=== PATIENT | female | born 1940 | race African-American/Black ===

== ENCOUNTER 2018-07-06 16:08 | Emergency (ER) | payer MEDICARE, MEDICAID ==
[~2018-07-06] VITALS: Ht 154.9 cm; Wt 50.0 kg
[~2018-07-06 16:08] MED LIST: CLOP75TA33 PO; FOLI-43 PO; GABA-529 PO; ISOS60TA4 PO; LIP40 PO; LISI10TA5 PO; LORA10TA7 PO; MIRT15TA6 PO
[2018-07-06 16:35] VITALS: BP 131/80
== END 2018-07-06 18:36 | disposition left against medical advice (07) ==
LOC: ER 16:36
DX: Z53.21 Procedure and treatment not carried out due to patient leaving prior to being seen by health care provider (principal)

== ENCOUNTER 2019-04-14 06:54 | Inpatient (IN) | payer MEDICARE, MEDICAID ==
[~2019-04-14] VITALS: Ht 156.2 cm; Wt 45.4 kg
[2019-04-14] MEDS ORDERED: NITROGLYCERIN OINT 1GM/INCH UDPKT TD ONE (07:30)
[2019-04-14] MEDS ORDERED: ACETAMINOPHEN 325MG TABLET PO ONE (07:30)
[2019-04-14 08:20] LABS: HEMATOCRIT. 43.8 % (36.0-48.0); HEMOGLOBIN. 14.5 g/dL (12.0-16.0); MEAN CORPUSCULAR HEMOGLOBIN 29.3 pg (28.0-32.0); MEAN CORPUSCULAR VOLUME 88.4 fL (81.0-99.0); MEAN PLATELET VOLUME 8.9 fl (7.4-10.4); PLATELET 286 x1000/uL (130-400); RED BLOOD CELL COUNT 4.95 mill/uL (4.2-5.4); RED CELL DISTRIBUTION WIDTH 14.2 % (11.6-14.6)
[2019-04-14 08:28] LABS: CHLORIDE 110 mEq/L (98-107)
[2019-04-14 09:05] LABS: PLATELET ESTIMATE NORMAL
[2019-04-14] MEDS ORDERED: ZOLPIDEM TARTRATE 5MG TABLET PO PRN (10:30)
[2019-04-14] MEDS ORDERED: IPRATROPIUM/ALBUTEROL 0.5-3(2.5)MG/3ML NEB NEB PRN (10:30)
[2019-04-14] MEDS ORDERED: ONDANSETRON HCL 4MG/2ML INJ IV PRN (10:30)
[2019-04-14] MEDS ORDERED: TRAMADOL 50MG TABLET PO PRN (10:30)
[2019-04-14] MEDS ORDERED: GUAIFENESIN 200MG/10ML SUGAR FREE UDC PO PRN (10:30)
[2019-04-14] MEDS ORDERED: LORAZEPAM 0.5MG TABLET PO PRN (10:30)
[2019-04-14] MEDS ORDERED: MAGNESIUM/ALUMINUM HYDROXIDE/SIMETHICONE 30ML UDC PO PRN (10:30)
[2019-04-14] MEDS ORDERED: NITROGLYCERIN 0.4MG TABLET SL SL PRN (10:30)
[2019-04-14] MEDS ORDERED: ACETAMINOPHEN 325MG TABLET PO PRN (10:30)
[2019-04-14] MEDS ORDERED: CLONIDINE 0.1MG TABLET PO PRN (10:30)
[2019-04-14 10:40] VITALS: BP 152/81
[2019-04-14] MEDS: AMLODIPINE 10MG TABLET PO SCH (11:51)
[2019-04-14] MEDS: ENOXAPARIN 40MG/0.4ML SYR SUBCUT SCH (11:52)
[2019-04-14 12:00] VITALS: BP 138/82
[2019-04-14 12:01] LABS: FOLIC ACID (FOLATE) SERUM >20 ng/mL ng/mL (>5.38)
[2019-04-14 12:12] LABS: VITAMIN B12 SERUM 887 pg/mL (211-911)
[2019-04-14 16:00] VITALS: BP 140/90
[2019-04-14 16:00] LABS: CREATINE KINASE 68 IU/L (26-192)
[2019-04-14 16:01] LABS: CREATINE KINASE MB FRACTION 1.4 ng/mL (0.5-3.6)
[2019-04-14 20:00] VITALS: BP 178/99
[2019-04-14] MEDS: ATORVASTATIN CALCIUM 40MG TABLET PO SCH (22:05)
[2019-04-14] MEDS: FAMOTIDINE 20MG TABLET PO SCH (22:05)
[2019-04-15] VITALS: BP 154/88
[2019-04-15 01:14] LABS: CREATINE KINASE 68 IU/L (26-192)
[2019-04-15 01:15] LABS: CREATINE KINASE MB FRACTION 1.4 ng/mL (0.5-3.6)
[2019-04-15 04:00] VITALS: BP 126/72
[2019-04-15 08:00] VITALS: BP 122/74
[2019-04-15] MEDS: FAMOTIDINE 20MG TABLET PO SCH (08:24)
[2019-04-15] MEDS: ENOXAPARIN 40MG/0.4ML SYR SUBCUT SCH (08:24)
[2019-04-15] MEDS: AMLODIPINE 10MG TABLET PO SCH (08:24)
[2019-04-15] MEDS: CLOPIDOGREL 75MG TABLET PO SCH (08:24)
[2019-04-15 12:00] VITALS: BP 145/100
[2019-04-15 16:00] VITALS: BP 141/67
[2019-04-15 17:13] LABS: CLARITY URINE CLEAR (CLEAR); COLOR URINE YELLOW (YELLOW); KETONES URINE NEGATIVE (NEGATIVE); LEUKOCYTE ESTERASE URINE 1+ (NEGATIVE); NITRITE URINE NEGATIVE (NEGATIVE); OCCULT BLOOD URINE TRACE (NEGATIVE); PH URINE 6.5 (4.5-8.0); PROTEIN URINE NEGATIVE (NEGATIVE); SPECIFIC GRAVITY URINE 1.002 (1.005-1.030); UROBILINOGEN URINE 0.2 E.U./dL (0.2-1.0)
[2019-04-15 17:30] LABS: METHADONE URINE SCREEN NEGATIVE (NEGATIVE)
[2019-04-15 17:31] LABS: *AMPHETAMINES SCREEN URINE NEGATIVE (NEGATIVE); *BARBITURATES SCREEN URINE NEGATIVE (NEGATIVE); *BENZODIAZEPINES SCREEN URINE NEGATIVE (NEGATIVE); CANNABINOID URINE SCREEN NEGATIVE (NEGATIVE); OPIATES URINE SCREEN NEGATIVE (NEGATIVE); PHENCYCLIDINE URINE SCREEN NEGATIVE (NEGATIVE)
[2019-04-15 17:32] LABS: *COCAINE SCREEN URINE NEGATIVE (NEGATIVE)
[2019-04-15] MEDS: ATORVASTATIN CALCIUM 40MG TABLET PO SCH (20:55)
[2019-04-16] VITALS: BP_SYST 156; BP_SYST 89; BP_DIAS 89
[2019-04-16 04:00] VITALS: BP 133/61
[2019-04-16 08:00] VITALS: BP 152/76
[2019-04-16] MEDS: ENOXAPARIN 40MG/0.4ML SYR SUBCUT SCH (08:28)
[2019-04-16] MEDS: AMLODIPINE 10MG TABLET PO SCH (08:28)
[2019-04-16] MEDS: FAMOTIDINE 20MG TABLET PO SCH (08:28)
[2019-04-16] MEDS: CLOPIDOGREL 75MG TABLET PO SCH (08:28)
[2019-04-16 12:00] VITALS: BP 143/84
[2019-04-16] MEDS ORDERED: LEVOFLOXACIN 500MG PREMIX 100 ML IV SCH (12:00)
[2019-04-16 16:00] VITALS: BP 132/65
[2019-04-16] MEDS ORDERED: CEFTRIAXONE 1 G PREMIX 50 ML IV SCH (16:15)
[2019-04-16] MEDS ORDERED: METHYLPREDNISOLONE SOD SUCC 125 MG/2 ML VIAL IV NR (16:15)
[2019-04-16] MEDS: CEFTRIAXONE 1 G PREMIX 50 ML IV SCH (17:59)
[2019-04-16 20:00] VITALS: BP 139/64
[2019-04-16] MEDS: ATORVASTATIN CALCIUM 40MG TABLET PO SCH (20:37)
[2019-04-17] VITALS: BP 169/90
[2019-04-17 04:00] VITALS: BP 126/91
[2019-04-17 08:00] VITALS: BP 150/93
[2019-04-17] MEDS: CLOPIDOGREL 75MG TABLET PO SCH (08:25)
[2019-04-17] MEDS: AMLODIPINE 10MG TABLET PO SCH (08:25)
[2019-04-17] MEDS: ENOXAPARIN 40MG/0.4ML SYR SUBCUT SCH (08:25)
[2019-04-17] MEDS: FAMOTIDINE 20MG TABLET PO SCH (08:25)
[2019-04-17] MEDS: DOCUSATE SODIUM 100MG CAPSULE PO PRN (11:56)
[2019-04-17 12:00] VITALS: BP 142/83
[2019-04-17] MEDS ORDERED: LEVOFLOXACIN 250MG PREMIX 50 ML IV SCH (12:00)
[2019-04-17 16:00] VITALS: BP 135/85
[2019-04-17] MEDS: CEFTRIAXONE 1 G PREMIX 50 ML IV SCH (18:00)
[2019-04-17 20:00] VITALS: BP 158/78
[2019-04-17] MEDS: ATORVASTATIN CALCIUM 40MG TABLET PO SCH (21:38)
[2019-04-18] VITALS: BP 133/77
[2019-04-18 04:00] VITALS: BP 130/85
[2019-04-18 08:00] VITALS: BP 156/72
[2019-04-18] MEDS: AMLODIPINE 10MG TABLET PO SCH (08:44)
[2019-04-18] MEDS: FAMOTIDINE 20MG TABLET PO SCH (08:44)
[2019-04-18] MEDS: CLOPIDOGREL 75MG TABLET PO SCH (08:44)
[2019-04-18] MEDS: ENOXAPARIN 40MG/0.4ML SYR SUBCUT SCH (08:45)
[2019-04-18] MEDS: DOCUSATE SODIUM 100MG CAPSULE PO PRN (08:45)
[2019-04-18 12:00] VITALS: BP 133/70
[2019-04-18 16:00] VITALS: BP 130/75
[2019-04-18] MEDS: CEFTRIAXONE 1 G PREMIX 50 ML IV SCH (17:02)
[2019-04-18 20:00] VITALS: BP 135/82
[2019-04-18] MEDS: ATORVASTATIN CALCIUM 40MG TABLET PO SCH (21:26)
[2019-04-19] VITALS: BP 133/85
[2019-04-19 04:00] VITALS: BP 138/75
[2019-04-19] MEDS: DOCUSATE SODIUM 100MG CAPSULE PO PRN (06:45)
[2019-04-19 08:00] VITALS: BP 139/69
[2019-04-19] MEDS ORDERED: ENOXAPARIN 30MG/0.3ML SYR SUBCUT SCH (09:00)
[2019-04-19] MEDS: FAMOTIDINE 20MG TABLET PO SCH (09:02)
[2019-04-19] MEDS: CLOPIDOGREL 75MG TABLET PO SCH (09:02)
[2019-04-19] MEDS: AMLODIPINE 10MG TABLET PO SCH (09:02)
[2019-04-19 10:41] VITALS: BP 139/69
[2019-04-19 12:00] VITALS: BP 158/93
== END 2019-04-19 12:45 | disposition home or self-care (01) | DRG 92 ==
LOC: ER 06:54 → 8WST 08:14 → EDBEDREQTM 08:24 → ENRESERV 09:21 → 8WST 04-15 22:33
PROVIDERS: ADMIT Internal Medicine; ATTEND Internal Medicine
DX: G92 Toxic encephalopathy (principal); E44.1 Mild protein-calorie malnutrition; Z68.1 Body mass index [BMI] 19.9 or less, adult; E78.00 Pure hypercholesterolemia, unspecified; F03.90 Unspecified dementia, unspecified severity, without behavioral disturbance, psychotic disturbance, mood disturbance, and anxiety; I10 Essential (primary) hypertension; F32.9 Major depressive disorder, single episode, unspecified; R07.89 Other chest pain; J44.9 Chronic obstructive pulmonary disease, unspecified; Z86.73 Personal history of transient ischemic attack (TIA), and cerebral infarction without residual deficits; Z79.02 Long term (current) use of antithrombotics/antiplatelets; Z79.899 Other long term (current) drug therapy; Z88.6 Allergy status to analgesic agent; Z88.0 Allergy status to penicillin
CPT/HCPCS: 36415; 71045; 80061; 80305; 81003; 82550; 82553; 82607; 82746; 83036; 83540; 83550; 83880; 84484; 93005; 93306; 93970; 97162; 99285; J0696; J1650; J1956; J2930; J7040

== ENCOUNTER 2019-04-20 13:05 | Inpatient (IN) | payer MEDICARE, MEDICAID ==
[~2019-04-20] VITALS: Ht 162.6 cm; Wt 43.1 kg
[2019-04-20] MEDS ORDERED: SODIUM CHLORIDE 0.9% 1000ML BAG (SEPSIS BOLUS) IV ONE (13:45)
[2019-04-20 14:11] LABS: BASOPHILS % 0.5 % (0.0-2.0); EOSINOPHILS % 1.1 % (0.0-5.0); HEMATOCRIT. 44.9 % (36.0-48.0); LYMPHOCYTES % 43.9 % (20.0-50.0); MEAN CORPUSCULAR HEMOGLOBIN 29.3 pg (28.0-32.0); MEAN CORPUSCULAR VOLUME 87.5 fL (81.0-99.0); MONOCYTES % 7.5 % (2.0-8.0); PLATELET 270 x1000/uL (130-400); RED BLOOD CELL COUNT 5.13 mill/uL (4.2-5.4); RED CELL DISTRIBUTION WIDTH 13.8 % (11.6-14.6)
[2019-04-20 14:14] LABS: CHLORIDE 105 mEq/L (98-107)
[2019-04-20 14:16] LABS: INR 1.1; PARTIAL THROMBOPLASTIN TIME 27.7 sec (23.4-31.0)
[2019-04-20] MEDS ORDERED: SODIUM CHLORIDE 0.9% 1,000 ML IV ONE (14:16)
[2019-04-20] MEDS ORDERED: MEROPENEM 1,000 MG in SODIUM CHLORIDE 0.9% 100 ML IV STA (14:34)
[2019-04-20] MEDS ORDERED: VANCOMYCIN 1 G PREMIX 200 ML IV SCH (14:45)
[2019-04-20 18:07] LABS: CLARITY URINE CLEAR (CLEAR); COLOR URINE YELLOW (YELLOW); KETONES URINE NEGATIVE (NEGATIVE); LEUKOCYTE ESTERASE URINE 3+ (NEGATIVE); NITRITE URINE NEGATIVE (NEGATIVE); OCCULT BLOOD URINE NEGATIVE (NEGATIVE); PROTEIN URINE NEGATIVE (NEGATIVE); UROBILINOGEN URINE 0.2 E.U./dL (0.2-1.0)
[2019-04-20 20:00] VITALS: BP 100/57
[2019-04-20 22:00] VITALS: BP 104/63
[2019-04-20 23:02] VITALS: BP 90/52
[2019-04-21] VITALS (12 sets, daily range): BP systolic 94–175; BP diastolic 49–93
[2019-04-21] MEDS ORDERED: CLONIDINE 0.1MG TABLET PO PRN
[2019-04-21] MEDS ORDERED: IPRATROPIUM/ALBUTEROL 0.5-3(2.5)MG/3ML NEB NEB PRN
[2019-04-21] MEDS ORDERED: DIPHENHYDRAMINE 50MG/ML VIAL IV PRN
[2019-04-21] MEDS ORDERED: MAGNESIUM HYDROXIDE 400MG/5ML 30ML UDC PO PRN
[2019-04-21] MEDS ORDERED: LEVOFLOXACIN 500MG PREMIX 100 ML IV SCH
[2019-04-21] MEDS ORDERED: ONDANSETRON HCL 4MG/2ML INJ IV PRN
[2019-04-21] MEDS ORDERED: GUAIFENESIN 200MG/10ML SUGAR FREE UDC PO PRN
[2019-04-21] MEDS ORDERED: MAGNESIUM/ALUMINUM HYDROXIDE/SIMETHICONE 30ML UDC PO PRN
[2019-04-21] MEDS: SODIUM CHLORIDE 0.9% 1,000 ML IV SCH (01:25)
[2019-04-21] MEDS ORDERED: MEROPENEM 1,000 MG in SODIUM CHLORIDE 0.9% 100 ML IV SCH (06:00)
[2019-04-21] MEDS ORDERED: ENOXAPARIN 40MG/0.4ML SYR SUBCUT SCH (09:00)
[2019-04-21 09:41] LABS: BASOPHILS % 0.5 % (0.0-2.0); EOSINOPHILS % 0.9 % (0.0-5.0); HEMATOCRIT. 39.7 % (36.0-48.0); HEMOGLOBIN. 13.2 g/dL (12.0-16.0); LYMPHOCYTES % 34.5 % (20.0-50.0); MEAN CORPUSCULAR HEMOGLOBIN 29.4 pg (28.0-32.0); MEAN CORPUSCULAR VOLUME 88.3 fL (81.0-99.0); MEAN PLATELET VOLUME 9.1 fl (7.4-10.4); MONOCYTES % 7.4 % (2.0-8.0); NEUTROPHILS % 56.7 % (40.0-76.0); PLATELET 223 x1000/uL (130-400); RED CELL DISTRIBUTION WIDTH 13.9 % (11.6-14.6)
[2019-04-21 09:52] LABS: CHLORIDE 113 mEq/L (98-107)
[2019-04-21] MEDS ORDERED: VANCOMYCIN 750 MG PREMIX 150 ML IV SCH (10:00)
[2019-04-21] MEDS: CEFTRIAXONE 1 G PREMIX 50 ML IV SCH (10:54)
[2019-04-21] MEDS: FAMOTIDINE 20MG TABLET PO SCH (22:50)
[2019-04-22] VITALS (11 sets, daily range): BP systolic 131–162; BP diastolic 50–98
[2019-04-22] MEDS: SODIUM CHLORIDE 0.9% 1,000 ML IV SCH ×2 (00:25→17:06)
[2019-04-22] MEDS: ACETAMINOPHEN 325MG TABLET PO PRN (04:38)
[2019-04-22] MEDS: CEFTRIAXONE 1 G PREMIX 50 ML IV SCH (09:54)
[2019-04-22] MEDS: ENOXAPARIN 30MG/0.3ML SYR SUBCUT SCH (09:55)
[2019-04-22 16:09] LABS: T4 FREE 1.59 ng/dL (0.76-1.46)
[2019-04-22] MEDS ORDERED: REGADENOSON 0.4 MG/5 ML IV SCH (19:45)
[2019-04-22] MEDS ORDERED: POLYETHYLENE GLYCOL 3350 (17GM) 1 DOSE PACK PO NR (20:00)
[2019-04-22] MEDS: FAMOTIDINE 20MG TABLET PO SCH (20:54)
[2019-04-23] VITALS (12 sets, daily range): BP systolic 141–169; BP diastolic 60–100
[2019-04-23] MEDS: ENOXAPARIN 30MG/0.3ML SYR SUBCUT SCH (09:13)
[2019-04-23] MEDS: DOCUSATE SODIUM 250MG CAPSULE PO SCH ×2 (09:13→17:55)
[2019-04-23] MEDS: CEFTRIAXONE 1 G PREMIX 50 ML IV SCH (09:14)
[2019-04-23] MEDS ORDERED: REGADENOSON 0.4 MG/5 ML IV ONE (13:45)
[2019-04-23] MEDS: METHIMAZOLE 10MG TABLET PO SCH (21:12)
[2019-04-23] MEDS: FAMOTIDINE 20MG TABLET PO SCH (21:12)
[2019-04-24] VITALS (12 sets, daily range): BP systolic 134–173; BP diastolic 52–95
[2019-04-24 07:58] LABS: T4 FREE 1.68 ng/dL (0.76-1.46)
[2019-04-24] MEDS: ENOXAPARIN 30MG/0.3ML SYR SUBCUT SCH (09:23)
[2019-04-24] MEDS: DOCUSATE SODIUM 250MG CAPSULE PO SCH ×2 (09:23→17:57)
[2019-04-24] MEDS: METHIMAZOLE 10MG TABLET PO SCH ×2 (09:23→17:57)
[2019-04-24] MEDS: CEFTRIAXONE 1 G PREMIX 50 ML IV SCH (09:23)
[2019-04-24] MEDS: SODIUM CHLORIDE 0.9% 1,000 ML IV SCH ×2 (09:25→22:32)
[2019-04-24] MEDS ORDERED: HYDRALAZINE 20MG/ML VIAL IV PRN (13:15)
[2019-04-24] MEDS: LISINOPRIL 10MG TABLET PO SCH ×2 (14:48→22:32)
[2019-04-24] MEDS: FAMOTIDINE 20MG TABLET PO SCH (22:31)
[2019-04-25] VITALS (12 sets, daily range): BP systolic 99–154; BP diastolic 52–93
[2019-04-25] MEDS: METHIMAZOLE 10MG TABLET PO SCH ×2 (08:56→16:05)
[2019-04-25] MEDS: ACETAMINOPHEN 325MG TABLET PO PRN (08:56)
[2019-04-25] MEDS: DOCUSATE SODIUM 250MG CAPSULE PO SCH ×2 (08:56→16:05)
[2019-04-25] MEDS: LISINOPRIL 10MG TABLET PO SCH ×2 (08:57→21:45)
[2019-04-25] MEDS: ENOXAPARIN 30MG/0.3ML SYR SUBCUT SCH (08:57)
[2019-04-25] MEDS: CEFTRIAXONE 1 G PREMIX 50 ML IV SCH (08:58)
[2019-04-25] MEDS: SODIUM CHLORIDE 0.9% 1,000 ML IV SCH (16:05)
[2019-04-25] MEDS: FAMOTIDINE 20MG TABLET PO SCH (21:44)
[2019-04-26] VITALS (10 sets, daily range): BP systolic 126–213; BP diastolic 60–141
[2019-04-26 05:13] LABS: CHLORIDE 110 mEq/L (98-107); PROTHROMBIN TIME 10.7 sec (9.6-11.0)
[2019-04-26 05:55] LABS: BASOPHILS % 0.8 % (0.0-2.0); HEMATOCRIT. 39.2 % (36.0-48.0); HEMOGLOBIN. 13.3 g/dL (12.0-16.0); LYMPHOCYTES % 39.3 % (20.0-50.0); MEAN CORPUSCULAR HEMOGLOBIN 29.6 pg (28.0-32.0); MEAN CORPUSCULAR VOLUME 87.5 fL (81.0-99.0); MEAN PLATELET VOLUME 9.3 fl (7.4-10.4); MONOCYTES % 9.6 % (2.0-8.0); NEUTROPHILS % 47.3 % (40.0-76.0); PLATELET 237 x1000/uL (130-400); RED BLOOD CELL COUNT 4.48 mill/uL (4.2-5.4); RED CELL DISTRIBUTION WIDTH 13.6 % (11.6-14.6)
[2019-04-26] MEDS: CEFTRIAXONE 1 G PREMIX 50 ML IV SCH (08:36)
[2019-04-26] MEDS: ENOXAPARIN 30MG/0.3ML SYR SUBCUT SCH (09:00)
[2019-04-26] MEDS: DOCUSATE SODIUM 250MG CAPSULE PO SCH ×2 (09:00→17:41)
[2019-04-26] MEDS: METHIMAZOLE 10MG TABLET PO SCH ×2 (09:00→17:41)
[2019-04-26] MEDS: LISINOPRIL 10MG TABLET PO SCH ×2 (09:00→18:41)
[2019-04-26] MEDS ORDERED: VANCOMYCIN 1 G PREMIX 200 ML IV SCH (09:45)
[2019-04-26] MEDS ORDERED: GENTAMICIN/NS IRRIGATION 500 ML IR ONE (09:46)
[2019-04-26] MEDS ORDERED: GENTAMICIN SULF 40MG/ML 2ML VIAL ONE (09:47)
[2019-04-26] MEDS ORDERED: LIDOCAINE HCL 1% 20ML VIAL (Pyxis) INJ ONE ×2 (09:47→10:24)
[2019-04-26] MEDS ORDERED: MIDAZOLAM HCL 2 MG/2 ML VIAL ONE ×2 (09:48→11:02)
[2019-04-26] MEDS ORDERED: FENTANYL CITRATE/PF 50MCG/ML 2ML VIAL ONE (09:48)
[2019-04-26] MEDS ORDERED: MORPHINE SULFATE 2 MG/ML CPJ (NOT FOR IM USE) IV PRN (11:30)
[2019-04-26] MEDS: SODIUM CHLORIDE 0.9% 1,000 ML IV SCH ×2 (12:45)
[2019-04-26] MEDS: ACETAMINOPHEN 325MG TABLET PO PRN (14:17)
[2019-04-26] MEDS ORDERED: CLONIDINE 0.2MG TABLET PO PRN ×2 (18:57→19:00)
[2019-04-26] MEDS ORDERED: HYDRALAZINE 20MG/ML VIAL IV PRN (19:00)
[2019-04-26] MEDS: FAMOTIDINE 20MG TABLET PO SCH (20:48)
[2019-04-26] MEDS: HYDROCODONE/ACETAMINOPHEN 5/325MG TABLET PO PRN (22:32)
[2019-04-27] VITALS (9 sets, daily range): BP systolic 99–141; BP diastolic 49–81
[2019-04-27] MEDS: SODIUM CHLORIDE 0.9% 1,000 ML IV SCH (03:57)
[2019-04-27] MEDS: HYDROCODONE/ACETAMINOPHEN 5/325MG TABLET PO PRN ×2 (06:03→13:17)
[2019-04-27] MEDS: ENOXAPARIN 30MG/0.3ML SYR SUBCUT SCH (08:20)
[2019-04-27] MEDS: DOCUSATE SODIUM 250MG CAPSULE PO SCH (08:21)
[2019-04-27] MEDS: CEFTRIAXONE 1 G PREMIX 50 ML IV SCH (08:21)
[2019-04-27] MEDS: LISINOPRIL 10MG TABLET PO SCH (08:21)
[2019-04-27] MEDS: METHIMAZOLE 10MG TABLET PO SCH (08:21)
== END 2019-04-27 17:05 | disposition home or self-care (01) | DRG 853 ==
LOC: ER 13:05 → 5EST 16:48 → ENRESERV 18:58 → 3WST 04-26 11:45
PROVIDERS: ADMIT Internal Medicine; ATTEND Internal Medicine
PROC: 0JH606Z Insertion of Pacemaker, Dual Chamber into Chest Subcutaneous Tissue and Fascia, Open Approach (ICD-10-PCS; principal; 2019-04-26)
PROC: 02H63JZ Insertion of Pacemaker Lead into Right Atrium, Percutaneous Approach (ICD-10-PCS; 2019-04-26)
PROC: 02HK3JZ Insertion of Pacemaker Lead into Right Ventricle, Percutaneous Approach (ICD-10-PCS; 2019-04-26)
DX: A41.9 Sepsis, unspecified organism (principal); G93.41 Metabolic encephalopathy; R65.21 Severe sepsis with septic shock; N39.0 Urinary tract infection, site not specified; I44.2 Atrioventricular block, complete; F03.90 Unspecified dementia, unspecified severity, without behavioral disturbance, psychotic disturbance, mood disturbance, and anxiety; J44.9 Chronic obstructive pulmonary disease, unspecified; I10 Essential (primary) hypertension; E05.90 Thyrotoxicosis, unspecified without thyrotoxic crisis or storm; E78.00 Pure hypercholesterolemia, unspecified; E83.51 Hypocalcemia; G90.8 Other disorders of autonomic nervous system; R73.9 Hyperglycemia, unspecified; F17.210 Nicotine dependence, cigarettes, uncomplicated; F32.9 Major depressive disorder, single episode, unspecified; I49.5 Sick sinus syndrome; Z88.0 Allergy status to penicillin; Z86.73 Personal history of transient ischemic attack (TIA), and cerebral infarction without residual deficits; Z79.899 Other long term (current) drug therapy; Z88.1 Allergy status to other antibiotic agents; Z88.8 Allergy status to other drugs, medicaments and biological substances
CPT/HCPCS: 33208; 36415; 71045; 78452; 80048; 81003; 83520; 83605; 84145; 84439; 84443; 84481; 84484; 93005; 93017; 93970; 99291; A4565; A9500; C1769; C1785; C1898; J0360; J0696; J1200; J1580; J1650; J2185; J2250; J2785; J3010; J3370; J3490; J7030; J7050; L3670